=== PATIENT | male | born 1950 | race Asian ===

== ENCOUNTER 2023-07-09 12:11 | Emergency (ER) | payer OTHER, MEDICARE ==
[~2023-07-09] VITALS: Ht 162.6 cm; Wt 68.2 kg
[2023-07-09 12:23] VITALS: TEMP 98.6
[2023-07-09 12:31] LABS: COVID AG,FIA SOURCE NASAL SWAB
[2023-07-09 12:52] LABS: INFLUENZA TYPE A NEGATIVE FOR TYPE A (NEGATIVE); INFLUENZA TYPE B NEGATIVE FOR TYPE B (NEGATIVE); SARS-COV2 (COVID) ANTIGEN,FIA Negative (Negative)
[2023-07-09] MEDS ORDERED: BENZ-227 PO (15:11)
[2023-07-09] MEDS ORDERED: OXYMETAZOLINE HCL 0.05% 15 ML NASAL SPRAY NASAL ONE (15:15)
[2023-07-09 15:45] VITALS: BP 122/71; PULSE 70; RESP 14
== END 2023-07-09 15:58 | disposition home or self-care (01) ==
LOC: EMS 12:11
DX: J06.9 Acute upper respiratory infection, unspecified (principal); Z20.822 Contact with and (suspected) exposure to COVID-19
CPT/HCPCS: 87804; 99283